=== PATIENT | male | born 2005 | race African-American/Black ===

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

== ENCOUNTER 2025-03-20 15:21 | Emergency (ER) | payer MEDICAID ==
[~2025-03-20] VITALS: Ht 175.3 cm; Wt 118.8 kg
[~2025-03-20 15:21] MED LIST: IBUP-1456 PO
--- NOTE | 2025-03-20 16:09 | DVH ---
EXAM: XY R WRIST 3+ VIEW XRAY HISTORY: r/o fracture COMPARISON: None TECHNIQUE: 3 views of the right wrist were performed. FINDINGS: No acute fracture or dislocation are identified about the right wrist. No significant degenerative ch anges. IMPRESSION: No acute fracture or significant degenerative changes of the right wrist.
[2025-03-20] MEDS ORDERED: IBUP-1455 PO (17:31)
--- NOTE | 2025-03-20 17:35 | ED.PDOC ---
Rayna. trauma (HPI) HPI Comments 20-year-old male that presents to ED chief complaint of trauma. Patient states he was playing football three weeks prior and states he was tackled and landed on his right wrist. Patient states since has been having increased pain with movement patient came to the ED today due to increasing pain. Patient now in the ED otherwise denies any other symptoms. Patient otherwise in the ED denies any other symptoms and has good noted pulses. Chief Complaint: Upper Extremity Time Seen by MD: 17:29 Primary Care Provider: UNKNOWN Reviewed notes: Medications, Allergies Allergies: Coded Allergies: NO KNOWN ALLERGIES (Unverified , 08/19/22) Home Meds Active Scripts Ibuprofen (Ibuprofen) 800 Mg Tab, 1 TAB PO TID, #30 TAB Prov:FATMATA JAEGER 08/19/22 Information Source: Patient Mode of Arrival: Ambulatory Brought in by: Self Past Medical History PAST MEDICAL HISTORY: Denies Surgical History: Denies all surgeries Family History Family History: Reviewed,noncontributory to illness Social History Smoker: Non-Smoker Alcohol: Denies ETOH Use Drugs: Denies Drug Use Lives In: Home Constitutional: denies: chills, diaphoresis, fatigue, fever, malaise, sweats, weakness, others EENTM: denies: blurred vision, double vision, ear bleeding, ear discharge, ear drainage, ear pain, ear ringing, eye pain, eye redness, hearing loss, mouth pain, mouth swelling, nasal discharge, nose bleeding, nose congestion, nose pain, photophobia, tearing, throat pain, throat swelling, voice changes, others Respiratory: denies: cough, hemoptysis, orthopnea, SOB at rest, shortness of breath, SOB with excertion, stridor, wheezing, others Cardiovascular: denies: chest pain, dizzy spells, diaphoresis, Dyspnea on exertion, edema, irregular heart beat, left arm pain, lightheadedness, palpitations, PND, syncope, others Gastrointestinal: denies: abdomen distended, abdominal pain, blood streaked bowels, constipated, diarrhea, dysphagia, difficulty swallowing, hematemesis, melena, nausea, poor appetite, poor fluid intake, rectal bleeding, rectal pain, vomiting, others Genitourinary: denies: burning, dysuria, flank pain, frequency, hematuria, incontinence, penile discharge, penile sore, pain, testicle pain, testicle swelling, urgency, others Neurological: denies: dizziness, fainting, headache, left sided numbness, left sided weakness, numbness, paresthesia, pre-existing deficit, right sided numbness, right sided weakness, seizure, speech problems, tingling, tremors, weakness, others Musculoskeletal: reports: joint pain (Right wrist); denies: back pain, gout, joint swelling, muscle pain, muscle stiffness, neck pain, others Integumetry: denies: bruises, change in color, change in hair/nails, dryness, laceration, lesions, lumps, rash, wounds, others Allergic/Immunocompromised: denies: Difficulty Healing, Frequent Infections, Hives, Itching, others Hematologic/Lymphatic: denies: anemia, blood clots, easy bleeding, easy bruising, swollen glands, others Endocrine: denies: excessive hunger, excessive sweating, excessive thirst, excessive urination, flushing, intolerance to cold, intolerance to heat, unexplained weight gain, unexplained weight loss, others Psychiatric: denies: anxiety, bipolar disorder, depression, hopeless, panic disorder, schizophrenia, sleepless, suicidal, others All Other Systems: Reviewed and Negative Physical Exam General Appearance: No Apparent Distress, Normal HEENT: Normal ENT Inspection, Pharynx Normal, TMs Normal Neck: Full Range of Motion, Non-Tender, Normal, Normal Inspection Respiratory: Chest Non-Tender, Lungs Clear, No Accessory Muscle Use, No Re spiratory Distress, Normal Breath Sounds Cardiovascular: No Edema, No JVD, No Murmur, No Gallop, Normal Peripheral Pulses, Regular Rate/Rhythm Breast Exam: Deferred Gastrointestinal: No Organomegaly, Non Tender, No Pulsatile Mass, Normal Bowel Sounds, Soft Genitalia: Deferred Pelvic: Deferred Rectal: Deferred Extremities: Normal range of motion, Tender (Right wrist swelling and tenderness good range of motion 2+ pulses), Other Musculoskeletal : Apperance: Normal Neurologic: Alert, clerk telegraph service II-XII nml as Tested, No Motor Deficits, Normal Affect, Normal Mood, No Sensory Deficits Cerebellar Function: Normal Reflexes: Normal Skin: Dry, Normal Color, Warm Lymphatic: No Adenopathy Was a procedure done? Was a procedure done?: No Differential Diagnosis Multiple Trauma: Fractures, Abrasions, Contusion, Other (Wrist sprain) X-Ray, Labs, Meds, VS Vital Signs Date Time Temp Pulse Resp B/P (MAP) Pulse Ox O2 Delivery O2 Flow Rate FiO2 03/20/25 15:22 98.9 66 18 126/77 98 98.9 [facility] [id number] [facility] [address] Ph: [phone] DIAGNOSTIC IMAGING Diagnostic Imaging Report : [id number] Signed PATIENT: LATASHA RESENDEZ ACCT: [id number] UNIT: [id number] : 2005 LOC: ER ROOM / BED: / AGE / SEX: 20 / M ADM STATUS: REG ER SERVICE [id number] ORDERING PHYSICIAN: KEERTHI FERNANDEZ NP PROCEDURE(s): RWRI - R WRIST 3+ VIEW XRAY REASON: r/o fracture ORDER NUMBER(s): [id number], ACCESSION NUMBER(s): [id number] EXAM: XY R WRIST 3+ VIEW XRAY HISTORY: r/o fracture COMPARISON: None TECHNIQUE: 3 views of the right wrist were performed. FINDINGS: No acute fracture or dislocation are identified about the right wrist. No significant degenerative changes. IMPRESSION: No acute fracture or significant degenerative changes of the right wrist. ATED BY: GLENN GRAHAM MD DICTATED DATE/TIME: 03/20/251605 SIGNED BY: GLENN GRAHAM MD SIGNED DATE/TIME: 03/20/251605 CC: X-Ray, Labs, Meds, VS Comment Patient arrives alert and oriented, ABC's intact, afebrile, vital signs stable, saturating well in room air Diagnostic imaging ordered by me and results interpreted by radiology : IMPRESSION: No acute fracture or significant degenerative changes of the right wrist. Labs in the ED showed (pertinent+ and then pertinent-) Patient was given:_. Tolerated medications with no adverse reaction. Additional MDM Review of External, Non-ED records: External records reviewed. Discussion with independent historian (EMS, family) history obtained from the patient/parents (if applicable) at bedside Chronic conditions affecting care: None Social determinants of health affecting care: None Consideration of admission (observation or admission): I considered escalation of care to admission for this patient, however given the reassuring workup, the patient is safe for outpatient management. Discussion with the Radiology: No Tests considered but not performed: Prescription medication considered but not given: 12 lead EKG interpretation: Time of 1ST Reevaluation: 17:35 Reevaluation 1ST: Improved Patient Education/Counseling: Diagnosis, Treatment Family Education/Counseling: No Family Present Departure 1 Departure Time of Disposition: 17:35 Impression: Primary Impression: Right wrist sprain Disposition: 01 HOME / SELF CARE / HOMELESS Condition: Stable Discharged With: Self Critical Care Note Critical Care Time?: No Stability Stability form required: No Heart Score Heart Score: Heart Score Response (Comments) Value History N/A 0 EKG N/A 0 Age N/A 0 Risk Factors N/A 0 Troponin N/A 0 Total 0 I personally scribed for KEERTHI FERNANDEZ NP ([email or web address]) on 03/20/25 at 17:35. Electronically submitted by Syed De Jesus ([email or web address]). KEERTHI FERNANDEZ NP Mar 20, 2025 17:35
[2025-03-20 18:02] VITALS: BP 120/72; PULSE 68; RESP 18; TEMP 98.6; O2SAT 98
== END 2025-03-20 18:09 | disposition home or self-care (01) ==
LOC: ER 15:22
DX: S63.592A Other specified sprain of left wrist, initial encounter (principal); X58.XXXA Exposure to other specified factors, initial encounter; Y93.61 Activity, american tackle football; Y92.89 Other specified places as the place of occurrence of the external cause; Y99.8 Other external cause status
CPT/HCPCS: 73110